=== PATIENT | male | born 1940 | race Caucasian/White ===

== ENCOUNTER 2021-08-25 11:40 | Emergency (ER) | payer MEDICARE, SELFPAY ==
[2021-08-25 11:50] VITALS: BP 146/76; PULSE 71; RESP 14; TEMP 36.2; O2SAT 96
--- NOTE | 2021-08-25 12:43 | ED.MALEGU ---
HPI - Male Genitourinary General Chief complaint: Urogenital-Male Stated complaint: poss uti Source: patient Mode of arrival: ambulatory Limitations: no limitations History of Present Illness HPI Narrative: Patient is a 81-year-old male who presents with complaints of body aches, chills and urinary frequency x3 to 4 days. Patient was recently vaccinated with Covid booster. He reports initial symptoms for 24 hours which have resolved. Patient reports body aches chills and urinary frequency starting 2 to 3 days post Covid booster. He denies significant medical history. He reports flu vaccinated. He denies Covid exposure. Related Data Home Medications Medication Instructions Recorded Confirmed amlodipine 10 mg PO DAILY 08/25/21 08/25/21 atorvastatin 40 mg PO DAILY 08/25/21 08/25/21 citalopram 20 mg PO DAILY 08/25/21 08/25/21 lisinopril 40 mg PO DAILY 08/25/21 08/25/21 omeprazole 40 mg PO DAILY 08/25/21 08/25/21 Allergies Allergy/AdvReac Type Severity Reaction Status Date / Time No Known Allergies Allergy Verified 08/25/21 12:17 Review of Systems Review of Systems: CONSTITUTIONAL: Reports generalized body aches and chills EYES: Denies visual changes, redness, or discharge. ENT: Denies rhinorrhea, congestion, sore throat, or otalgia. CARDIOVASCULAR: Denies chest pain, palpitations, or edema. RESPIRATORY: Denies cough or dyspnea. GASTROINTESTINAL: Denies abdominal pain, nausea, vomiting, or diarrhea. GENITOURINARY: Urinary frequency. SKIN: Denies rash or itching. MUSCULOSKELETAL: Denies back pain, joint pain, or myalgia. NEUROLOGIC: Denies headache, numbness, dizziness, or weakness. PSYCHIATRIC: Denies anxiety or depression. [facility] Past Medical History Medical History GERD (gastroesophageal reflux disease) HTN (hypertension) Hypercholesterolemia Myocardial infarction Surgical History Surgical History H/O cardiac catheterization Social History Social History (Updated 08/25/21 @ 12:48 by SANTINO Dunne) Smoking status: Former smoker Alcohol intake: never Substance use: never Living arrangements: with family Comments At the time of signature, I have reviewed and agree with nursing past medical, surgical, social, and family history unless otherwise noted. Please see nursing chart for further information. There is no relevant family history pertinent to the presenting complaint. Exam Narrative: GENERAL: Well-appearing, well-nourished, and in no acute distress. HEAD: Normocephalic, atraumatic. EYES: EOMI. No redness or drainage. Conjunctiva are normal. ENT: Mucous membranes pink and moist. CHEST: No respiratory distress. Clear to auscultation. HEART: Regular rate and rhythm. EXTREMITIES: Normal range of motion. No edema. SKIN: Warm, dry, no rash. NEURO: No focal deficits. Alert and oriented x3. Gait steady. PSYCH: Normal affect. No signs of depression or anxiety. Course Vital Signs Vital signs: Vital Signs Temperature 36.2 C L 08/25/21 11:50 Pulse Rate 71 08/25/21 11:50 Respiratory Rate 14 08/25/21 11:50 Blood Pressure 146/76 H 08/25/21 11:50 Pulse Oximetry 96 08/25/21 11:50 Temperature 36.2 C L 08/25/21 11:50 Pulse Rate 71 08/25/21 11:50 Respiratory Rate 14 08/25/21 11:50 Blood Pressure 146/76 H 08/25/21 11:50 Pulse Oximetry 96 08/25/21 11:50 Reviewed. Patient has been instructed to follow-up with his PCP regarding his blood pressure. MDM - Male Genitourinary MDM Narrative Medical decision making narrative: Patient's UA is negative. Patient requesting Covid and influenza testing at this time. Covid PCR sent. Influenza negative. Patient is aware and the need to follow-up with his PCP on Friday. Patient is aware of red flags in which to seek further evaluation in the emergency department. Patient agrees with plan of care. Patient
[2021-08-27 18:23] LABS: SARS-CoV-2 RNA PCR Negative
== END 2021-08-25 12:55 | disposition home or self-care (01) ==
PROVIDERS: Emergency Provider Nurse Practitioner; PCP Internal Medicine
DX: R35.0 Frequency of micturition (principal); Z20.822 Contact with and (suspected) exposure to COVID-19; K21.9 Gastro-esophageal reflux disease without esophagitis; I10 Essential (primary) hypertension; E78.00 Pure hypercholesterolemia, unspecified; I25.2 Old myocardial infarction
CPT/HCPCS: 81003; 87804; 99213; C9803; G0463; U0003; U0005